=== PATIENT | female | born 1930 ===

== ENCOUNTER 2017-02-24 07:28 | Emergency (ER) | payer MEDICARE ==
[2017-02-24] MEDS ORDERED: Sodium Chloride 0.9% 1,000 ML IV STA (08:07)
[2017-02-24] MEDS ORDERED: Morphine 4 mg/ml ISec IVP STA (08:07)
--- NOTE | 2017-02-24 08:17 | ED PDOC ---
Arrival/HPI - General Chief Complaint: Trauma Time Seen by Provider: 02/24/17 08:05 Historian: Patient - History of Present Illness Narrative History of Present Illness (Text): 02/24/17 08:05 Marla Murray is an 86 year old female who presents to the emergency department complaining of L. knee pain following a mechanical fall this morning. Patient denies any loss of consciousness, syncope, chest pain, shortness of breath, or any other complaints at this time. Time/Duration: 1-3 hours Symptom Course: Unchanged Activities at Onset: Light Context: Walking, Home Past Medical History - Provider Review Nursing Documentation Reviewed: Yes - Cardiac Hx Cardiac Disorders: Yes Hx Hypertension: Yes - Pulmonary Hx Respiratory Disorders: No - Neurological Hx Neurological Disorder: No - HEENT Hx HEENT Disorder: No Hx Blind: No - Renal Hx Renal Disorder: No - Endocrine/Metabolic Hx Endocrine Disorders: Yes Hx Diabetes Mellitus Type 2: Yes - Hematological/Oncological Hx Blood Disorders: No - Integumentary Hx Dermatological Disorder: No - Musculoskeletal/Rheumatological Hx Musculoskeletal Disorders: Yes Hx Arthritis: Yes - Gastrointestinal Hx Gastrointestinal Disorders: No - Genitourinary/Gynecological Hx Genitourinary Disorders: No - Psychiatric Hx Psychophysiologic Disorder: No Hx Substance Use: No - Surgical History Hx Joint Replacement: Yes (left knee) Other/Comment: colon Family/Social History - Physician Review Nursing Documentation Reviewed: Yes Family/Social History: No Known Family HX Smoking Status: Never Smoked Hx Alcohol Use: No Hx Substance Use: No Allergies/Home Meds Allergies/Adverse Reactions: Allergies No Known Allergies Allergy (Verified 02/24/17 07:49) Home Medications: Home Meds Medication Instructions Recorded Confirmed Unobtainable 02/24/17 02/24/17 Physical Exam - Physical Exam Narrative Physical Exam (Text): - Review of Systems Constitutional: Normal. absent: Fatigue, Weight Change, Fevers Eyes: Normal ENT: Normal Respiratory: Normal absent: SOB, Cough, Sputum Cardiovascular: Normal absent: Chest pain, Palpitations, Syncope Gastrointestinal: Normal absent: Abdominal pain, Diarrhea, Nausea, Vomiting Genitourinary: Normal. absent: Dysuria, Frequency, Hematuria Musculoskeletal: L. knee injury. absent: Back Pain, Neck Pain Skin: Normal Neurological: Normal absent: Focal Weakness Endocrine: Normal Hemo/Lymphatic: Normal Psychiatric: Normal - Physical exam Patient appears age appropriate, speaking full sentences without difficulty. - Systems Exam Head atraumatic. No nasal bone deformity or tenderness, no facial or jaw pain/ swelling. No neck midline tenderness, thoracic and lumbar spine with no midline tenderness. Pt moving b/l upper and lower extremities without difficulty, 5/5 strength, with full active and passive ROM (except for left knee). Left knee/ femur appears displaced. Distal neurovasc fully intact. Abd soft/nt/nd, no hematomas, no peritoneal signs. Neg. pelvic rock. Head: Present: Atraumatic, Normocephalic Pupils: Present: PERRL Extraocular Muscles: Present: EOMI Conjunctiva: Present: Normal Mouth: Present: Moist Mucous Membranes Neck: Present: Normal Range of Motion. No: MIDLINE TENDERNESS, Paraspinal Tenderness Respiratory/Chest: Present: Clear to Auscultation, Good Air Exchange. No: Respiratory Distress, Accessory Muscle Use, Tachypnic Cardiovascular: Present: Regular Rate and Rhythm, Normal S1, S2, Peripheral Pulses Present. No: Murmurs Abdomen: Present: Normal Bowel Sounds, No: Tenderness, Peritoneal Signs, Rebound, Guarding, Distention Back: Present: Normal Inspection. No: Midline Tenderness, Paraspinal Tenderness Upper Extremity: Present: Normal Inspection. No: Cyanosis, Edema Lower Extremity: No: Edema Neurological: Present: GCS=15, Speech Normal, cranial nerves II through XII fully intact with no cerebellar abnormality, neuro-sensory fully intact. No focal neurological deficits. Skin: Present: Warm, Dry, Normal Color. No: Rashes Lymphatic: Present: OX3, NI, NC Psychiatric: Present: Alert, Oriented x 3, Normal Insight, Normal Concentration Vital Signs Reviewed: Yes Vital Signs Temp Pulse Resp BP Pulse Ox 02/24/17 11:00 69 18 179/93 H 100 02/24/17 09:56 77 18 120/58 L 99 02/24/17 07:29 97.5 F L 60 19 127/44 L 100 Blood Pressure: Hypotensive Pulse: Regular Respiratory Rate: Normal Appearance: Positive for: Non-Toxic, Comfortable Mental Status: Positive for: Alert and Oriented X 3 Medical Decision Making ED Course and Treatment: 02/24/17 08:05 Impression: 86 year old female complaining of a mechanical fall this morning. Patient denies any loss of consciousness, syncope, chest pain, shortness of breath or any other complaints at this time. L. knee/femur appears displaced/fractured. Distal neurovasc. fully intact. +pulses Differential Diagnosis included but are not limited to: Knee Fracture vs. Knee Dislocation Plan: -- EKG -- Chest X-ray -- Head CT w/o contrast -- Left Knee CT w/o contrast -- Left Knee X-ray -- Pelvis X-ray -- Type and Screen -- Labs -- Morpine and IV Fluids -- Reassess and disposition Progress Notes: 02/24/17 09:32 CT HEAD WITHOUT CONTRAST: Dictator : Karsten Valencia MD FINDINGS: HEMORRHAGE:No intracranial hemorrhage. BRAIN:No mass effect or edema. Chronic microvascular changes in the periventricular white matter. VENTRICLES:Unremarkable. No hydrocephalus. CALVARIUM:Unremarkable. PARANASAL SINUSES:Unremarkable as visualized. No significant inflammatory changes. MASTOID AIR CELLS: There is opacification of the majority of the mastoid air cells right greater than left consistent with mastoiditis. The middle ear cavities are unremarkable OTHER FINDINGS:None. IMPRESSION: No acute intracranial findings. Bilateral mastoiditis 02/24/17 09:34 CT of the left knee without contrast: Dictator : Karsten Valencia MD FINDINGS: There is an obliquely oriented displaced comminuted fracture of the distal shaft of the femur above the level of the prosthesis. There is no disruption of the femoral component of the prosthesis. The tibial component is also unremarkable. IMPRESSION: There is an obliquely oriented displaced comminuted fracture of the distal shaft of the femur above the level of the prosthesis. 02/24/17 11:[address] Lemus, Orthopedist mobile phone salesperson, images were sent and states that he will not take case. Asked to call Dr. Keller instead. 02/24/17 11:[address] Keller, who states to transfer patient to [facility] and he will be the accepting physician. 02/24/17 12:[address] Pena in [facility], aware of pt being transferred pt in no distress at this time aware of and agrees with plan EKG interpreted by ER physician. Normal sinus. No ST-segment elevations. Normal intervals. - Lab Interpretations Lab Results: 02/24/17 08:30 02/24/17 08:30 Lab Results 02/24/17 08:45: POC Glucose (mg/dL) 180 H 02/24/17 08:30: Sodium 136, Potassium 4.0, Chloride 106, Carbon Dioxide 20 L, Anion Gap 14, BUN 15, Creatinine 0.9, Est GFR ( Amer) > 60, Est GFR (Non- Af Amer) 60, Random Glucose 142 H, Calcium 8.7, Total Bilirubin 0.3, AST 18, ALT 24, Alkaline Phosphatase 82, Total Protein 5.9, Albumin 3.2, Globulin 2.7, Albumin/Globulin Ratio 1.2 02/24/17 08:30: PT 11.0, INR 1.02, APTT 24.2 02/24/17 08:30: WBC 9.9, RBC 3.44 L, Hgb 10.2 L, Hct 30.7 L, MCV 89.2, MCH 29.7 , MCHC 33.2, RDW 13.5, Plt Count 305, MPV 9.3, Gran % 68.6 H, Lymph % (Auto) 23.7, [place] % (Auto) 6.0, Eos % (Auto) 1.2 L, Baso % (Auto) 0.5, Gran # 6.76 H, Lymph # 2.3, [place] # 0.6, Eos # 0.1, Baso # 0.05 02/24/17 08:30: Blood Type O POSITIVE, Antibody Screen Negative, BBK History Checked No verified bt I have reviewed the lab results: Yes - RAD Interpretation Radiology Orders: 02/24/17 08:07 HEAD W/O CONTRAST [CT] Stat 02/24/17 08:08 CHEST ONE VIEW [RAD] Stat 02/24/17 08:09 KNEE WITHOUT CONTRAST LEFT [CT] Stat KNEE LEFT 2 VIEWS (AP & LAT) [RAD] Stat PELVIS ONE VIEW [RAD] Stat 02/24/17 09:28 Femur Left [FEMUR MIN 2 VIEWS LT] [RAD] Stat - Medication Orders Current Medication Orders: Discontinued Medications Sodium Chloride (Sodium Chloride 0.9%) 1,000 mls @ 1,000 mls/hr IV .Q1H STA Stop: 02/24/17 09:06 Last Admin: 02/24/17 08:49 Dose: 1,000 mls/hr Morphine Sulfate (Morphine) 4 mg IVP STAT STA Stop: 02/24/17 08:08 Last Admin: 02/24/17 08:47 Dose: 4 mg Morphine Sulfate (Morphine) 6 mg IVP STAT STA Stop: 02/24/17 10:47 Last Admin: 02/24/17 11:13 Dose: 6 mg - Scribe Statement The provider has reviewed the documentation as recorded by the Campbell Keller Provider Scribe Attestation: All medical record entries made by the Scribe were at my direction and personally dictated by me. I have reviewed the chart and agree that the record accurately reflects my personal performance of the history, physical exam, medical decision making, and the department course for this patient. I have also personally directed, reviewed, and agree with the discharge instructions and disposition. Disposition/Present on Arrival - Present on Arrival Any Indicators Present on Arrival: No History of DVT/PE: No History of Uncontrolled Diabetes: No Urinary Catheter: No History of Decub. Ulcer: No History Surgical Site Infection Following: None - Disposition Have Diagnosis and Disposition been Completed?: Yes Diagnosis: Femoral distal fracture Disposition: Trans to Other Acute Care Hosp Disposition Time: 12:08 Patient Plan: Transfer To ([facility]) Condition: STABLE Referrals: Fox Spear MD [Primary Care Provider] - Follow up with primary Forms: [employer] ([place]ian)
[2017-02-24 09:00] LABS: BASO # 0.05 K/mm3 (0.0-2.0); BASO % 0.5 % (0.0-3.0); EOS # 0.1 (0.0-0.7); EOS % 1.2 % (1.5-5.0); GRAN # 6.76 (1.4-6.5); GRAN % 68.6 % (50.0-68.0); HEMATOCRIT 30.7 % (36.0-48.0); LYMPH # 2.3 (1.2-3.4); LYMPH % 23.7 % (22.0-35.0); MEAN CELL VOLUME 89.2 fl (80.0-105.0); MEAN CORPUSCULAR HEMOGLOBIN 29.7 pg (25.0-35.0); MEAN CORPUSCULAR HGB CONC 33.2 g/dl (31.0-37.0); MEAN PLATELET VOLUME 9.3 fl (7.0-11.0); MONO # 0.6 (0.1-0.6); RED CELL DISTRIBUTION WIDTH 13.5 % (11.5-14.5); WHITE BLOOD COUNT 9.9 10^3/ul (4.5-11.0)
[2017-02-24 09:08] LABS: ALB/GLOB RATIO 1.2 (1.1-1.8); ALKALINE PHOSPHATASE 82 U/L (38-133); ALT/SGPT 24 U/L (7-56); AST/SGOT 18 U/L (15-39); BILIRUBIN,TOTAL 0.3 mg/dL (0.2-1.3); BLOOD UREA NITROGEN 15 mg/dL (7-21); CALCIUM 8.7 mg/dL (8.4-10.5); CARBON DIOXIDE 20 mmol/L (21-33); CHLORIDE 106 mmol/L (98-107); GFR AFRICAN-AMERICAN > 60; GLUCOSE,RANDOM 142 mg/dL (70-110); SODIUM 136 mmol/L (132-148); TOTAL PROTEIN 5.9 g/dL (5.8-8.3)
--- NOTE | 2017-02-24 09:27 | CT ---
PROCEDURE: CT HEAD WITHOUT CONTRAST. HISTORY: fall COMPARISON: None available. TECHNIQUE: Axial computed tomography images were obtained through the head/brain without intravenous contrast. Radiation dose: Total exam DLP = 734 mGy-cm. This CT exam was performed using one or more of the following dose reduction techniques: Automated exposure control, adjustment of the mA and/or kV according to patient size, and/or use of iterative reconstruction technique. FINDINGS: HEMORRHAGE: No intracranial hemorrhage. BRAIN: No mass effect or edema. Chronic microvascular changes in the periventricular white matter. VENTRICLES: Unremarkable. No hydrocephalus. CALVARIUM: Unremarkable. PARANASAL SINUSES: Unremarkable as visualized. No significant inflammatory changes. MASTOID AIR CELLS: There is opacification of the majority of the mastoid air cells right greater than left consistent with mastoiditis. The middle ear cavities are unremarkable OTHER FINDINGS: None. IMPRESSION: No acute intracranial findings. Bilateral mastoiditis
[2017-02-24 09:30] LABS: INR 1.02 (0.93-1.08); PARTIAL THROMBOPLASTIN TIME 24.2 Seconds (23.7-30.8)
--- NOTE | 2017-02-24 09:32 | CT ---
PROCEDURE: CT of the left knee without contrast HISTORY: fall COMPARISON: TECHNIQUE: CT of the left knee was performed with sagittal and coronal reconstructions and 3D reconstructions. FINDINGS: There is an obliquely oriented displaced comminuted fracture of the distal shaft of the femur above the level of the prosthesis. There is no disruption of the femoral component of the prosthesis. The tibial component is also unremarkable. IMPRESSION: There is an obliquely oriented displaced comminuted fracture of the distal shaft of the femur above the level of the prosthesis.
--- NOTE | 2017-02-24 09:44 | RAD ---
PROCEDURE: Left Knee Radiographs. HISTORY: Pain. COMPARISON: None. FINDINGS: BONES: An elongated oblique distal diaphyseal fracture which anteriorly exits just above the femoral knee prostatic component is anteriorly displaced approximate 1.2 cm. The distal femoral fracture fragment posterior oriented proximal fracture and projects in close proximity with the atherosclerotic arterial calcification. The tibial stem appears still seated in the proximal tibia. The femoral and tibial prosthetic components are aligned normally .The patella alignment is within normal limits relative to the femoral prosthesis. Between the anterior exited femoral distal fracture end and in the patella, soft tissue swelling -a small hematoma here- is inferred There is approximately 4 to 5 mm radiolucency between the inferior tibial spur stem and the cement of the chronicity of this appearance is unknown some loosening of unknown chronicity is a consideration. No comparison postop appearances are available to assess for change . JOINTS: Total knee replacement JOINT EFFUSION: Present OTHER FINDINGS: None. IMPRESSION: Complete oblique fracture distal femur. Displaced distal fracture ending just above the femoral prostatic border. The posterior proximal femoral fracture end displaces a femoral atherosclerotic arterial vascular calcification. Correlate clinically .
--- NOTE | 2017-02-24 10:16 | RAD ---
PROCEDURE: HISTORY: injury COMPARISON: None TECHNIQUE: Four views FINDINGS: Generalized osteopenia left hip suggested. No fracture dislocation noted. Axial left hip joint space narrowing suggested. Heavy atherosclerotic vascular calcification noted. A complete oblique mid to distal femoral shaft fracture with proximal fractured ends angle posteriorly and very slightly medially the fractured ends here closely approximates and appears to displace a femoral the atherosclerotic arterial calcification The distal femoral fractured ends are displaced anteriorly approximately 1.4 cm anterior to the end of the femoral prosthetic component the exit of this fractures just above the prostatic in interface here. The left knee joint effusion with left suprapatellar hematoma suggested A probable calcified fibroid 5 cm is suggested. Conceivably hyper dense material within large stool ball could simulate this. There is prominent hyperdense stool in the sigmoid colon also noted IMPRESSION: Displaced distal femoral fracture. Findings discussed above
--- NOTE | 2017-02-24 10:31 | RAD ---
PROCEDURE: Radiographs of the pelvis. HISTORY: fall COMPARISON: None. FINDINGS: BONES: Pelvic Bones: Generalized osteopenia limiting optimal evaluation evaluation of the superior and inferior cyst rings and symphysis pubis region are particularly limited given the marked generalized osteopenia confounding stool projecting over this area Hips: Limited evaluation especially on the left greater trochanter superimposed on left femoral neck - consistent with patient's distal left femoral fracture and a left femoral resultant rotation. Bilateral axial hip joint space narrowing suggested JOINTS: Sacroiliac Joints: Grossly normal Pubic Symphysis: Markedly limited evaluation - -as described above ; generalized osteopenia OTHER FINDINGS: Inferior lumbar spondylosis. Atherosclerotic vascular calcifications present. A 5 x 3.5 cm oval rimmed calcified ossified left hemipelvic focus is noted in contrast to the prior left femur exam a central lucency within it is noted. Some considerations are still large uterine calcified fibroid an large bladder calculus and/or contents within the rectosigmoid bowel. IMPRESSION: Markedly limited exam given the marked osteopenia and patient's limited ability to cooperate for optimal positioning. Single frontal view also advised. Consider bilateral x-rays with multiple views to better assess the inferior hemipelvis in particular. On this study no gross proximal femur fractures are noted. The study is especially limited towards evaluating the symphysis pubis and the superior and pubic rings Left hemipelvic large rimmed calcification ossification -some considerations are as noted above .A pelvic with bladder ultrasound study should the cysts with clarification
[2017-02-24 14:00] VITALS: BP 134/55; PULSE 97; RESP 18; TEMP 98.1; O2SAT 100
--- NOTE | 2017-02-24 14:50 | RAD ---
PROCEDURE: CHEST RADIOGRAPH, 1 VIEW HISTORY: cough COMPARISON: None available. FINDINGS: LUNGS: Clear. PLEURA: No pneumothorax or pleural fluid seen. CARDIOVASCULAR: Normal. OSSEOUS STRUCTURES: Scoliosis. Generalized osteopenia. Mild deformity of inferior right lateral ribs consistent with old right rib fractures healed VISUALIZED UPPER ABDOMEN: Normal. OTHER FINDINGS: None. IMPRESSION: No acute cardiopulmonary pathology seen. Scoliosis, generalized osteopenia old right inferolateral healed rib fractures
--- NOTE | 2017-02-24 19:16 | CARD ---
APPROVED REPORT EKG Measurement Heart [id number] <Conclusion> Normal sinus rhythm Normal ECG
== END 2017-02-24 13:55 | disposition short-term general hospital (02) ==
LOC: ED 07:28
DX: S72.402A Unspecified fracture of lower end of left femur, initial encounter for closed fracture (principal); W19.XXXA Unspecified fall, initial encounter; Y92.009 Unspecified place in unspecified non-institutional (private) residence as the place of occurrence of the external cause; I10 Essential (primary) hypertension
CPT/HCPCS: 70450; 71010; 72170; 73552; 73560; 73700; 80053; 82948; 85025; 85610; 85730; 86850; 86900; 93005; 96374; 96376; 99285; J2270; J7040